=== PATIENT | female | born 1990 | race African-American/Black ===

== ENCOUNTER 2019-09-19 13:14 | Observation (INO) | payer OTHER ==
[~2019-09-19] VITALS: Ht 177.8 cm; Wt 104.3 kg
== END 2019-09-19 15:00 | disposition home or self-care (01) ==
LOC: 8 EST LDRP 13:14
PROVIDERS: ADMIT Obstetrics & Gynecology; ATTEND Obstetrics & Gynecology
DX: O62.9 Abnormality of forces of labor, unspecified (principal); Z3A.40 40 weeks gestation of pregnancy
CPT/HCPCS: 99281; G0378

== ENCOUNTER 2019-09-30 16:53 | Observation (INO) | payer OTHER | END 2019-09-30 18:30 | disposition home or self-care (01) | LOC: 8 EST LDRP 16:53 | PROVIDERS: ADMIT Obstetrics & Gynecology; ATTEND Obstetrics & Gynecology | DX: O62.9 Abnormality of forces of labor, unspecified (principal); Z3A.42 42 weeks gestation of pregnancy | CPT/HCPCS: 99281; G0378 ==

== ENCOUNTER 2019-10-01 04:17 | Inpatient (IN) | payer OTHER ==
[~2019-10-01] VITALS: Ht 177.8 cm; Wt 108.9 kg
[2019-10-01] MEDS ORDERED: DEXT 5%/LR + PITOCIN 20UNITS/L 1,000 ML IV SCH ×2 (05:39→10:00)
[2019-10-01] MEDS ORDERED: CARBOPROST TROMETHAMINE 250 MCG/ML AMPUL IM PRN (05:45)
[2019-10-01] MEDS: TERBUTALINE SULFATE 1MG/ML VIAL SUBCUT PRN ×2 (05:45→07:37)
[2019-10-01] MEDS ORDERED: METHYLERGONOVINE MALEATE 0.2 MG/ML IM PRN (05:45)
[2019-10-01] MEDS ORDERED: NALOXONE HCL 0.4 MG/ML 1ML VIAL IM PRN (05:45)
[2019-10-01] MEDS ORDERED: MISOPROSTOL 100MCG TABLET VG SCH (05:45)
[2019-10-01] MEDS ORDERED: BUTORPHANOL TARTRATE 2 MG/ML VIAL IV PRN (05:45)
[2019-10-01] MEDS ORDERED: LIDOCAINE HCL 1% 20ML VIAL (Pyxis) INJ INFIL SCH (05:45)
[2019-10-01 05:53] LABS: BASOPHILS % 0.3 % (0.0-2.0); EOSINOPHILS % 1.2 % (0.0-5.0); HEMATOCRIT. 34.9 % (36.0-48.0); LYMPHOCYTES % 31.3 % (20.0-50.0); MEAN CORPUSCULAR HEMOGLOBIN 29.5 pg (28.0-32.0); MEAN CORPUSCULAR VOLUME 85.8 fL (81.0-99.0); MEAN PLATELET VOLUME 8.5 fl (7.4-10.4); MONOCYTES % 12.4 % (2.0-8.0); NEUTROPHILS % 54.8 % (40.0-76.0); PLATELET 174 x1000/uL (130-400); RED BLOOD CELL COUNT 4.07 mill/uL (4.2-5.4); RED CELL DISTRIBUTION WIDTH 13.9 % (11.6-14.6)
[2019-10-01 06:33] LABS: HEPATITIS B SURFACE ANTIGEN NEGATIVE
[2019-10-01 06:45] LABS: PARTIAL THROMBOPLASTIN TIME 31.4 sec (23.4-31.0); PROTHROMBIN TIME 10.1 sec (9.6-11.0)
[2019-10-01] MEDS ORDERED: FENTANYL CITRATE/PF 50MCG/ML 2ML VIAL ONE ×2 (06:50→10:43)
[2019-10-01] MEDS ORDERED: MORPHINE SULFATE/PF 1MG/ML 10ML AMP ONE (06:50)
[2019-10-01] MEDS ORDERED: SODIUM CHLORIDE 0.9% 10ML VIAL ONE (06:50)
[2019-10-01] MEDS ORDERED: OXYTOCIN 10 UNITS/ML 1ML ONE (06:50)
[2019-10-01] MEDS ORDERED: CEFAZOLIN SODIUM 1000MG/VIAL ONE (06:50)
[2019-10-01] MEDS ORDERED: LACTATED RINGERS 1,000 ML IV SCH (08:45)
[2019-10-01] MEDS ORDERED: RHO(D) IMMUNE GLOBULIN 300 MCG/SYR IM PRN (10:00)
[2019-10-01] MEDS ORDERED: LANOLIN OINT 7GM TUBE TOP PRN (10:00)
[2019-10-01] MEDS ORDERED: HYDROCODONE/ACETAMINOPHEN 5/325MG TABLET PO PRN ×2 (10:00)
[2019-10-01] MEDS ORDERED: ONDANSETRON HCL 4MG/2ML INJ IV PRN ×2 (10:00→10:15)
[2019-10-01] MEDS ORDERED: IBUPROFEN 400MG TABLET PO PRN (10:00)
[2019-10-01] MEDS ORDERED: DIPHENHYDRAMINE 25MG CAPSULE PO PRN (10:00)
[2019-10-01] MEDS ORDERED: MEPERIDINE HCL/PF 25MG/ML CPJ IV PRN (10:15)
[2019-10-01] MEDS ORDERED: LABETALOL HCL 5MG/ML VIAL 20ML IV PRN (10:15)
[2019-10-01] MEDS ORDERED: HYDROMORPHONE HCL/PF 2MG/ML CPJ IV PRN (10:15)
[2019-10-01] MEDS ORDERED: KETOROLAC 30MG/ML VIAL IV PRN (10:15)
[2019-10-01] MEDS ORDERED: BUTORPHANOL TARTRATE 2 MG/ML VIAL IM PRN (10:15)
[2019-10-01] MEDS ORDERED: PROPOFOL 200MG/20ML VIAL IV ONE (10:43)
[2019-10-01] MEDS ORDERED: MIDAZOLAM HCL 2 MG/2 ML VIAL ONE (10:43)
[2019-10-01] MEDS ORDERED: LIDOCAINE HCL/PF 1% 10 MG/ML 5ML VIAL ONE (10:43)
[2019-10-01] MEDS ORDERED: ROCURONIUM BROMIDE 10MG/ML VIAL 5ML IV ONE (10:47)
[2019-10-01 11:00] LABS: CLARITY URINE CLEAR (CLEAR); COLOR URINE YELLOW (YELLOW); KETONES URINE 1+ (NEGATIVE); LEUKOCYTE ESTERASE URINE NEGATIVE (NEGATIVE); NITRITE URINE NEGATIVE (NEGATIVE); OCCULT BLOOD URINE TRACE (NEGATIVE); PH URINE 6.5 (4.5-8.0); PROTEIN URINE NEGATIVE (NEGATIVE); SPECIFIC GRAVITY URINE 1.019 (1.005-1.030)
[2019-10-01 11:12] LABS: *AMPHETAMINES SCREEN URINE NEGATIVE (NEGATIVE); *BARBITURATES SCREEN URINE NEGATIVE (NEGATIVE); *BENZODIAZEPINES SCREEN URINE NEGATIVE (NEGATIVE); *COCAINE SCREEN URINE NEGATIVE (NEGATIVE)
[2019-10-01 11:13] LABS: CANNABINOID URINE SCREEN NEGATIVE (NEGATIVE); METHADONE URINE SCREEN NEGATIVE (NEGATIVE); OPIATES URINE SCREEN NEGATIVE (NEGATIVE); PHENCYCLIDINE URINE SCREEN NEGATIVE (NEGATIVE)
[2019-10-01 12:30] VITALS: BP 112/49
[2019-10-01 13:00] VITALS: BP 116/59
[2019-10-01 20:00] VITALS: BP 106/50
[2019-10-01] MEDS: DOCUSATE SODIUM 100MG CAPSULE PO SCH (21:02)
[2019-10-02] VITALS (7 sets, daily range): BP systolic 101–137; BP diastolic 44–67
[2019-10-02 07:10] LABS: BASOPHILS % 0.1 % (0.0-2.0); EOSINOPHILS % 0.6 % (0.0-5.0); HEMATOCRIT. 29.7 % (36.0-48.0); HEMOGLOBIN. 10.2 g/dL (12.0-16.0); LYMPHOCYTES % 14.9 % (20.0-50.0); MEAN CORPUSCULAR HEMOGLOBIN 29.7 pg (28.0-32.0); MEAN CORPUSCULAR VOLUME 86.7 fL (81.0-99.0); MEAN PLATELET VOLUME 8.1 fl (7.4-10.4); MONOCYTES % 10.9 % (2.0-8.0); NEUTROPHILS % 73.5 % (40.0-76.0); PLATELET 139 x1000/uL (130-400); RED BLOOD CELL COUNT 3.43 mill/uL (4.2-5.4)
[2019-10-02] MEDS: PRENATAL VIT/FE FUMARATE/FA TABLET PO SCH (09:12)
[2019-10-02] MEDS: DOCUSATE SODIUM 100MG CAPSULE PO SCH (21:00)
[2019-10-03 04:00] VITALS: BP 103/60
[2019-10-03 08:00] VITALS: BP 109/54
[2019-10-03] MEDS ORDERED: NORE0.3520 MT (08:04)
[2019-10-03] MEDS ORDERED: FERR325T6 MT (08:04)
[2019-10-03] MEDS ORDERED: IBUP-2028 PO (08:04)
[2019-10-03] MEDS: PRENATAL VIT/FE FUMARATE/FA TABLET PO SCH (09:03)
[2019-10-03 12:00] VITALS: BP 105/63
== END 2019-10-03 16:00 | disposition home or self-care (01) | DRG 540 ==
LOC: 8 EST LDRP 04:17 → OBSVTOIN 04:17 → 8EST 12:07 → UNDODISIN 10-02 12:00
PROVIDERS: ADMIT Obstetrics & Gynecology; ATTEND Obstetrics & Gynecology
PROC: 10D00Z1 Extraction of Products of Conception, Low, Open Approach (ICD-10-PCS; principal; 2019-10-01)
DX: O34.211 Maternal care for low transverse scar from previous cesarean delivery (principal); Z37.0 Single live birth; O99.03 Anemia complicating the puerperium; Z3A.40 40 weeks gestation of pregnancy
CPT/HCPCS: 36415; 80305; 81003; 85025; 86592; 86703; 86762; 86850; 86900; 86920; 87340; 88307; 99281; J0595; J0690; J1885; J2250; J2274; J2405; J2590; J2704; J3010; J3105; J3490; J7120; Q0163